=== PATIENT | female | born 1955 | race Caucasian/White ===

== ENCOUNTER 2016-08-26 10:22 | Outpatient (CLI) | payer OTHER ==
--- NOTE | 2016-08-26 11:32 | Mammography Report ---
Screening mammogram: Left mastectomy. Routine views of the right breast demonstrate an area of focal asymmetry in the superior breast not appreciated in the CC projections. The remainder the breast pattern is heterogeneous but not otherwise remarkable. CAD used. Impression: Right breast asymmetry. Prior exams are being requested. If there is no followup report in the next 3 weeks right spot compression imaging and possible ultrasound recommended. BI-RADS CATEGORY: 0 = Needs additional imaging evaluation ACR BI-RADS MAMMOGRAPHIC CODES: 0 = Needs additional imaging evaluation; 1 = Negative; 2 = Benign; 3 = Probably benign; 4 = Suspicious; 5 = Malignant; 6 = Known biopsy-proven malignancy COMMENT: 1. Dense breast tissue, i.e., adenosis, fibrocystic changes, etc., may obscure an underlying neoplasm. 2. Approximately 10% of cancers are not detected with mammography. 3. A negative mammography report should not delay biopsy if a clinically suspicious mass is present.
== END 2016-08-26 10:23 | disposition home or self-care (01) ==
LOC: MAMMO 10:22
PROVIDERS: ATTEND Family Medicine
DX: Z12.31 Encounter for screening mammogram for malignant neoplasm of breast (principal)
CPT/HCPCS: G0202-52